=== PATIENT | male | born 1970 | race Caucasian/White ===

== ENCOUNTER → 2024-06-21 13:43 | Outpatient (REF) | payer BC, SELFPAY | LOC: HWCARD 13:43 | PROVIDERS: ATTENDING PHYSICIAN Nurse Practitioner Family | DX: E05.00 Thyrotoxicosis with diffuse goiter without thyrotoxic crisis or storm (principal); R07.89 Other chest pain; Z82.49 Family history of ischemic heart disease and other diseases of the circulatory system; E78.2 Mixed hyperlipidemia; R45.89 Other symptoms and signs involving emotional state | CPT/HCPCS: 93005 ==

== ENCOUNTER → 2024-07-05 07:38 | Outpatient (REF) | payer BC, SELFPAY | LOC: RCS 07:38 | PROVIDERS: ATTENDING PHYSICIAN Nurse Practitioner Family | DX: E05.00 Thyrotoxicosis with diffuse goiter without thyrotoxic crisis or storm (principal); R07.89 Other chest pain; Z82.49 Family history of ischemic heart disease and other diseases of the circulatory system; E78.2 Mixed hyperlipidemia; R45.89 Other symptoms and signs involving emotional state | CPT/HCPCS: 93017 ==

== ENCOUNTER → 2024-07-26 07:15 | Outpatient (REF) | payer BC, SELFPAY | LOC: RCS 07:15 | PROVIDERS: ATTENDING PHYSICIAN Nurse Practitioner Family; FAMILY PHYSICIAN Internal Medicine | DX: E05.00 Thyrotoxicosis with diffuse goiter without thyrotoxic crisis or storm (principal); R07.89 Other chest pain; Z82.49 Family history of ischemic heart disease and other diseases of the circulatory system; E78.2 Mixed hyperlipidemia; R45.89 Other symptoms and signs involving emotional state | CPT/HCPCS: 93225; 93226; 93306 ==

== ENCOUNTER → 2025-01-19 07:47 | Outpatient (REF) | payer BC, SELFPAY | LOC: RAD 07:47 | PROVIDERS: ATTENDING PHYSICIAN Nurse Practitioner Family | DX: R91.1 Solitary pulmonary nodule (principal) | CPT/HCPCS: 71260; Q9967 ==

== ENCOUNTER → 2025-02-05 07:33 | Outpatient (REF) | payer BC, SELFPAY | LOC: RCS 07:33 | PROVIDERS: ATTENDING PHYSICIAN Internal Medicine Cardiovascular Disease; FAMILY PHYSICIAN Family Medicine | DX: R07.2 Precordial pain (principal) | CPT/HCPCS: 93017 ==